=== PATIENT | male | born 1970 ===

== ENCOUNTER 2017-10-29 16:17 | Emergency (ER) | payer SELFPAY ==
[~2017-10-29] VITALS: Ht 172.7 cm; Wt 86.2 kg
[~2017-10-29 16:17] MED LIST: HYDR-91 PO
[2017-10-29 16:41] LABS: BILIRUBIN,URINE NEGATIVE (NEGATIVE); CLARITY,URINE VERY CLOUDY; COLOR,URINE YELLOW; GLUCOSE, URINE (UA) NEGATIVE (NEGATIVE); KETONES,URINE NEGATIVE (NEGATIVE); LEUKOCYTE ESTERASE ,URINE 3+ (NEGATIVE); NITRITE,URINE NEGATIVE (NEGATIVE); PH,URINE 6 (5-9); PROTEIN,URINE 3+ (NEGATIVE); UROBILINOGEN,URINE 4 MG/DL (NORMAL)
[2017-10-29 16:48] LABS: WBC,URINE TNTC /HPF
--- NOTE | 2017-10-29 16:48 | ED GU-Male ---
General Chief Complaint: -Male Stated Complaint: BURNING WITH URINATION Nursing Triage Note: STATES BURNING/BLOOD WITH URINATION Source: patient Exam Limitations: no limitations History of Present Illness Date Seen by Provider: Oct 29, 2017 Time Seen by Provider: 16:25 Initial Comments Here with complaint of dysuria and frequency. 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 He stated he felt like he had to go but when he finally did go he did not urinate very much. Since then he's had multiple frequent episodes of urination of only small amounts with burning when the urine is coming out and at the end. Has not been sexually active for a few months. Denies fever or chills. Denies nausea or vomiting. Timing/Duration: getting worse, other (4 days) Severity/Quality: moderate, burning Location: urethral Radiation: suprapubic Activities at Onset: none Prior Genitourinary Problems: none Sexual Wedron History: greater than 2 months ago, single partner Modifying Factors: Worsens With Urinating Associated Symptoms: No diaphoresis; dysuria; No fever/chills, No lower back pain, No nausea/vomiting, No urinary frequency Allergies and Home Medications Allergies Coded Allergies: No Known Drug Allergies (Unverified , 06/03/13) Home Medications Hydrocodone Bit/Acetaminophen 1 Each Tablet, 1-2 TAB PO Q4H PRN for PAIN Prescribed by: TRAY ROGERS on 07/28/13 1019 Patient Home Medication List Home Medication List Reviewed: Yes Review of Systems Constitutional: see HPI; No chills, No fever Respiratory: No short of breath, No wheezing Cardiovascular: No chest pain, No edema Gastrointestinal: abdominal pain (mild suprapubic); No nausea, No vomiting Genitourinary: dysuria, hematuria (intermittently), pain, urgency Musculoskeletal: back pain (intermittent) Skin: no symptoms reported All Other Systemes Reviewed Negative Unless Noted: Yes Past Bepqlcz-Jyteub-Ozlluc Hx Past Med/Social Hx: Reviewed Nursing Past Med/Soc Hx Patient Social History Alcohol Use: Occasionally Uses Recreational Drug Use: No Smoking Status: Never a Smoker Recent Foreign Travel: No Contact w/Someone Who Travel: No Recent Infectious Disease Expo: No Past Medical History Surgeries: No Respiratory: No Cardiac: No Neurological: No Reproductive Disorders: Yes (PHIMOSIS) Gastrointestinal: No Musculoskeletal: No Endocrine: No Psychosocial: No Family Medical History Reviewed Nursing Family Hx No Pertinent Family Hx Physical Exam Vital Signs Vital Signs - First Documented 10/29/17 16:30 Temp 97.2 Pulse 78 Resp 20 B/P (MAP) 140/109 (119) Pulse Ox 97 O2 Delivery Room Air Capillary Refill : Less Than 3 Seconds General Appearance: WD/WN, no apparent distress Cardiovascular: regular rate, rhythm, no murmur Respiratory: lungs clear, normal breath sounds Gastrointestinal: soft; No distended, No guarding; tenderness (mild suprapubic tenderness on palpation but otherwise negative) Back: normal inspection, no CVA tenderness, no vertebral tenderness Neurologic/Psychiatric: alert, oriented x 3 Skin: normal color, warm/dry Progress/Results/Core Measures Suspected Sepsis Recent Fever Within 48 Hours: No Infection Criteria Present: None New/Unexplained Altered Menta: No Sepsis Screen: No Definite Risk SIRS Temperature:97.2 Pulse: 78 Respiratory Rate: 20 Blood Pressure 140 /109 Mean: 119 Results/Orders Lab Results Laboratory Tests Test 10/29/17 16:33 Range/Units Urine Color YELLOW Urine Clarity VERY CLOUDY H Urine pH 6 5-9 Urine Specific [place] 1.010 L 1.016-1.022 Urine Protein 3+ H NEGATIVE Urine Glucose (UA) NEGATIVE NEGATIVE Urine Ketones NEGATIVE NEGATIVE Urine Nitrite NEGATIVE NEGATIVE Urine Bilirubin NEGATIVE NEGATIVE Urine Urobilinogen 4 H NORMAL MG/DL Urine Leukocyte Esterase 3+ H NEGATIVE Urine RBC (Auto) 5+ H NEGATIVE Urine RBC 10-25 H /HPF Urine WBC TNTC H /HPF Urine Crystals NONE /LPF Urine Bacteria LARGE H /HPF Urine Casts NONE /LPF Urine Mucus NEGATIVE /LPF Urine Culture Indicated YES My Orders Orders - MICKEY VUONG MD Ua Culture If Indicated (10/29/17 16:21) Urine Culture (10/29/17 16:33) Neis Kevin Dna Urine Test (10/29/17 16:48) Chlam Dna Probe (10/29/17 16:48) Vital Signs/I&O 10/29/17 16:30 Temp 97.2 Pulse 78 Resp 20 B/P (MAP) 140/109 (119) Pulse Ox 97 O2 Delivery Room Air Capillary Refill : Less Than 3 Seconds Blood Pressure Mean: 119 Progress Note : Progress Note Seen and evaluated. UA ordered. We will check urine for chlamydia and gonorrhea as well. Monitor patient. 1730: UA positive. 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 We did discuss proper hydration for both prevention and for treatment. Discharged home with return precautions. Patient verbalize understanding instructions and agreement with plan. Departure Impression Primary Impression: Urinary tract infection Qualified Codes: N30.01 - Acute cystitis with hematuria Disposition: HOME, SELF-CARE Condition: Stable Departure-Patient Inst. Decision time for Depature: 17:35 Referrals: NO,LOCAL PHYSICIAN (PCP/Family) Primary Care Physician Patient Instructions: Urinary Tract Infection, Adult (DC) Add. Discharge Instructions: All discharge instructions reviewed with patient and/or family. Voiced understanding. Take medications as directed. You may take ibuprofen 600 mg every 8 hours as needed for pain. You may take Tylenol/acetaminophen 1000 mg every 8 hours as needed for pain. Drink plenty of fluids. Follow-up with your Dr. in a few days for recheck. Return for worse pain, fever, vomiting, weakness or breathing problems or other concerns as needed. Scripts Phenazopyridine HCl (Pyridium) 100 Mg Tablet 100 MG PO Q8H PRN for PAIN-MILD TO MODERATE, #6 TAB 0 Refills Prov: MICKEY VUONG MD 10/29/17 Cephalexin (Cephalexin) 500 Mg Tablet 500 MG PO BID, #14 TAB 0 Refills Prov: MICKEY VUONG MD 10/29/17 MICKEY VUONG MD Oct 29, 2017 16:48
[2017-10-29 16:49] LABS: BACTERIA,URINE LARGE /HPF
[2017-10-29] MEDS ORDERED: PHEN-639 PO (17:37)
[2017-10-29] MEDS ORDERED: CEPH500T PO (17:37)
[2017-10-29 17:49] VITALS: BP 132/87
== END 2017-10-29 17:50 | disposition home or self-care (01) ==
LOC: EDUNIT# 16:17 → ER 16:19
DX: N39.0 Urinary tract infection, site not specified (principal)
CPT/HCPCS: 36415; 81000; 87077; 87088; 87186; 87491; 87591; 99283